=== PATIENT | female | born 1985 | race American Indian/Alaskan Native ===

== ENCOUNTER 2018-08-27 21:33 | Emergency (ER) | payer OTHER ==
[2018-08-27 22:54] VITALS: BP 124/67; PULSE 70; RESP 18; TEMP 98.3; O2SAT 98
--- NOTE | 2018-08-27 22:55 | ED PDOC ---
Arrival/HPI - General Chief Complaint: Headache Time Seen by Provider: 08/27/18 21:51 Historian: Patient - History of Present Illness Narrative History of Present Illness (Text): 08/27/18 22:54 Jeison Johns is a 32 year old female, with no significant past medical history, who presents to the ED complaining of headache. Patient states she has been experiencing headache discomfort to the top of her head for the past 2 days. Patient states she has not taken any medication for pain. Patient denies any history of recent trauma/injury, dizziness, vision changes, nausea, vomiting, neck pain, or any other complaints. Symptom Onset: Gradual Symptom Course: Unchanged Activities at Onset: Light Context: Home Past Medical History - Provider Review Nursing Documentation Reviewed: Yes - Infectious Disease Hx of Infectious Diseases: None - Cardiac Hx Cardiac Disorders: No - Pulmonary Hx Respiratory Disorders: No - Neurological Hx Neurological Disorder: No - HEENT Hx HEENT Disorder: No - Renal Hx Renal Disorder: No - Endocrine/Metabolic Hx Endocrine Disorders: No - Hematological/Oncological Hx Blood Disorders: No - Integumentary Hx Dermatological Disorder: No - Musculoskeletal/Rheumatological Hx Musculoskeletal Disorders: No - Gastrointestinal Hx Gastrointestinal Disorders: No - Genitourinary/Gynecological Hx Genitourinary Disorders: No - Psychiatric Hx Psychophysiologic Disorder: No Hx Substance Use: No - Surgical History Hx Dilation and Curettage: Yes - Anesthesia Hx Anesthesia: Yes Hx Anesthesia Reactions: No Family/Social History - Physician Review Nursing Documentation Reviewed: Yes Family/Social History: Unknown Family HX Smoking Status: Light Smoker < 10 Cigarettes Daily Hx Alcohol Use: Yes Frequency of alcohol use: Socially Hx Substance Use: No Allergies/Home Meds Allergies/Adverse Reactions: Allergies No Known Allergies Allergy (Verified 08/27/18 22:53) Review of Systems - Physician Review All systems were reviewed & negative as marked: Yes - Review of Systems Constitutional: Normal. absent: Fevers Eyes: Normal ENT: Normal Respiratory: Normal. absent: SOB, Cough Cardiovascular: Normal. absent: Chest Pain Gastrointestinal: Normal. absent: Abdominal Pain, Diarrhea, Nausea, Vomiting Genitourinary Female: Normal. absent: Dysuria, Frequency, Hematuria, Urine Output Changes Musculoskeletal: Normal. absent: Back Pain, Neck Pain Skin: Normal. absent: Rash Neurological: Headache. absent: Dizziness Endocrine: Normal Hemo/Lymphatic: Normal Psychiatric: Normal Physical Exam Vital Signs Reviewed: Yes Temperature: Afebrile Blood Pressure: Normal Pulse: Regular Respiratory Rate: Normal Appearance: Positive for: Well-Appearing, Non-Toxic, Comfortable Pain Distress: None Mental Status: Positive for: Alert and Oriented X 3 - Systems Exam Head: Present: Atraumatic, Normocephalic Pupils: Present: PERRL Extroacular Muscles: Present: EOMI Conjunctiva: Present: Normal Mouth: Present: Moist Mucous Membranes Neck: Present: Normal Range of Motion. No: Meningeal Signs, MIDLINE TENDERNESS, Paraspinal Tenderness Respiratory/Chest: Present: Clear to Auscultation, Good Air Exchange. No: Respiratory Distress, Accessory Muscle Use Cardiovascular: Present: Regular Rate and Rhythm, Normal S1, S2. No: Murmurs Abdomen: No: Tenderness, Distention, Peritoneal Signs Back: Present: Normal Inspection. No: CVA Tenderness, Midline Tenderness, Paraspinal Tenderness Upper Extremity: Present: Normal Inspection. No: Cyanosis, Edema Lower Extremity: Present: Normal Inspection. No: Edema Neurological: Present: GCS=15, CN II-XII Intact, Speech Normal Skin: Present: Warm, Dry, Normal Color. No: Rashes Psychiatric: Present: Alert, Oriented x 3, Normal Insight, Normal Concentration Medical Decision Making ED Course and Treatment: 08/27/18 22:54 Impression: 32 year old female complaining of headache for the past few days. Plan: -- CT Head w/o contrast -- Tylenol -- Reassess and disposition Prior Visits: Notes and results from previous visits were reviewed. Progress Notes: 08/28/18 01:16 CT Head: Normal size of the ventricles and extra-axial spaces for the patient's age. Normal white matter tracts of the supratentorial brain. Normal basal ganglia and thalami. Normal brainstem. Normal cerebellum. There is no demonstrated extra-axial, intraparenchymal, or intraventricular hemorrhage. There are no findings of an acute ischemic infarction. Normal calvarium. There is no demonstrated fracture. Normal soft tissue structures. Normal visualized paranasal sinuses. IMPRESSION: Normal unenhanced CT scan of the brain. Electronically signed on August 28, 2018 1:08:05 AM EDT by: Héctor Nash M.D., Certified by ABR, MSK, Neuroradiology - RAD Interpretation Staff Radiation Therapist: Radiologist - Scribe Statement The provider has reviewed the documentation as recorded by the Scribe Michelle Trent Provider [place] Attestation: All medical record entries made by the Abdiasibfransico were at my direction and personally dictated by me. I have reviewed the chart and agree that the record accurately reflects my personal performance of the history, physical exam, medical decision making, and the department course for this patient. I have also personally directed, reviewed, and agree with the discharge instructions and disposition. Disposition/Present on Arrival - Present on Arrival Any Indicators Present on Arrival: No History of DVT/PE: No History of Uncontrolled Diabetes: No Urinary Catheter: No History of Decub. Ulcer: No History Surgical Site Infection Following: None - Disposition Have Diagnosis and Disposition been Completed?: Yes Diagnosis: Headache Disposition: HOME/ ROUTINE Disposition Time: 01:25 Patient Plan: Discharge Condition: STABLE Additional Instructions: Take meds as prescribed/follow up with your doctor this week Prescriptions: Naproxen [Naprosyn] 500 mg PO BID PRN #12 tab PRN Reason: Pain Referrals: Mackenzie Yarbrough MD [Primary Care Provider] - Follow up with primary Forms: [employer] (Portuguese)
--- NOTE | 2018-08-28 08:16 | CT ---
Date of service: 08/27/2018 PROCEDURE: CT HEAD WITHOUT CONTRAST. HISTORY: headache COMPARISON: None available. TECHNIQUE: Axial computed tomography images were obtained through the head/brain without intravenous contrast. Radiation dose: Total exam DLP = 894.45 mGy-cm. This CT exam was performed using one or more of the following dose reduction techniques: Automated exposure control, adjustment of the mA and/or kV according to patient size, and/or use of iterative reconstruction technique. FINDINGS: HEMORRHAGE: No intracranial hemorrhage. BRAIN: No mass effect or edema. No atrophy or chronic microvascular ischemic changes. VENTRICLES: Unremarkable. No hydrocephalus. CALVARIUM: Unremarkable. PARANASAL SINUSES: Unremarkable as visualized. No significant inflammatory changes. MASTOID AIR CELLS: Unremarkable as visualized. No inflammatory changes. OTHER FINDINGS: The report concurs with the preliminary [facility] report IMPRESSION: No acute intracranial findings
== END 2018-08-28 01:36 | disposition home or self-care (01) ==
LOC: ED 21:33 → MERGE 21:33 → ED 08-28 01:36
DX: R51 Headache (principal); F17.210 Nicotine dependence, cigarettes, uncomplicated